=== PATIENT | female | born 1975 ===

== ENCOUNTER 2021-08-20 17:35 | Emergency (ER) | payer SELFPAY ==
[~2021-08-20] VITALS: Ht 167.6 cm; Wt 63.5 kg
[2021-08-20 18:10] VITALS: BP 101/77
== END 2021-08-21 00:22 | disposition left against medical advice (07) ==
LOC: EDBD 17:35 → ER 17:35
DX: F20.9 Schizophrenia, unspecified (principal); R53.1 Weakness; F17.210 Nicotine dependence, cigarettes, uncomplicated; F12.10 Cannabis abuse, uncomplicated